=== PATIENT | female | born 1975 ===

== ENCOUNTER 2018-01-17 06:19 | Day surgery (SDC) | payer BC ==
[2018-01-10 11:08] VITALS: BMI 28.0
[2018-01-17 06:44] LABS: BASO % 0.6 % (0.0-2.0); EOS # 0.1 K/uL (0.0-0.7); EOS % 1.5 % (0.0-4.0); HEMOGLOBIN 14.3 g/dL (12.0-16.0); LYMPH # 1.8 K/uL (1.0-4.3); LYMPH % 24.6 % (20.0-40.0); MEAN CELL VOLUME 88.8 fl (81.0-99.0); MEAN CORPUSCULAR HEMOGLOBIN 29.8 pg (27.0-31.0); MEAN CORPUSCULAR HGB CONC 33.6 g/dL (33.0-37.0); MEAN PLATELET VOLUME 9.1 fl (7.2-11.7); MONO # 0.8 K/uL (0.0-0.8); MONO % 10.4 % (0.0-10.0); NEUT # 4.7 K/uL (1.8-7.0); NEUT % 62.9 % (50.0-75.0); RBC 4.8 Mil/uL (3.80-5.20); WHITE BLOOD COUNT 7.4 K/uL (4.8-10.8)
[2018-01-17] MEDS ORDERED: Propofol 10 mg/ml Inj (20 ML) ONE (07:05)
[2018-01-17] MEDS ORDERED: Midazolam 2 MG/2 ML VIAL ONE (07:06)
--- NOTE | 2018-01-17 07:12 | CP.SDSHP ---
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 and requested pelvic and abd cat scan which was neg and now for hysteroscopy and D/ C r/o GTD - Previous Medical/Surgical History Neuro: Other Misc: Other Comments: see HPI; Hx of migraines Previous Surgical History: TOP 1992; umb hernia repair 2009; abdominoplaty 2015 - Allergies Allergies: Allergies No Known Allergies Allergy (Verified 01/17/18 06:38) - Physical Exam Vital Signs: Vital Signs 01/17/18 01/17/18 06:59 07:04 Temperature 98.5 F Pulse Rate 65 65 Respiratory 18 Rate Blood Pressure 112/67 O2 Sat by Pulse 98 Oximetry Mental Status: Alert & Oriented x3 Neuro: WNL Heart: WNL Lungs: WNL GI: WNL - {Optional Preform as Required} Breast: WNL Abdomen: WNL Rectal: WNL Integument: WNL INSIDE [employer]ES [employer]GER: WNL : WNL - Impression Impression: Lingering levels of SBS despite medical tx possible GTD - Date & Time Date: 01/17/18 Time: 07:21 Short Stay Discharge - Short Stay Discharge Admitting Diagnosis/Reason for Visit: 028.9 Disposition: HOME/ ROUTINE Referrals: Lucio Sanchez MD [Primary Care Provider] -
[2018-01-17] MEDS ORDERED: cefOXitin IV 1 gm in Dextrose 1 GM/50 ML BAG IVPB ONE (07:32)
[2018-01-17] MEDS ORDERED: Lactated Ringer's 1,000 ML IV ONE (07:35)
[2018-01-17] MEDS ORDERED: Dexamethasone 4 mg/1 ml ONE (07:48)
[2018-01-17] MEDS ORDERED: Oxycodone/Acetaminophen 5/325 mg Tab PO PRN (08:27)
--- NOTE | 2018-01-17 08:32 | CP.SDSHP ---
Same Day Surgery H & P - Allergies Allergies: Allergies No Known Allergies Allergy (Verified 01/17/18 06:38) - Physical Exam Vital Signs: Vital Signs 01/17/18 01/17/18 06:59 07:04 Temperature 98.5 F Pulse Rate 65 65 Respiratory 18 Rate Blood Pressure 112/67 O2 Sat by Pulse 98 Oximetry Short Stay Discharge - Short Stay Discharge Admitting Diagnosis/Reason for Visit: 028.9 Referrals: Lucio Sanchez MD [Primary Care Provider] - Follow-up: 2 wks Additional Instructions (Diet, Activity): pelvic and bed rest Progress Note/Discharge Note with Instructions: tolerated procedure well no complications Recovered well discussed procedure findings and instructions given
[2018-01-17] MEDS ORDERED: Dexamethasone 4 mg/1 ml IVP PRN (08:37)
[2018-01-17] MEDS ORDERED: HYDROmorphone 0.5 mg/0.5 ml ISec IVP PRN (08:37)
[2018-01-17 09:26] VITALS: RESP 18
[2018-01-17 10:29] VITALS: TEMP 98.2
[2018-01-17 12:02] VITALS: BP 100/51; PULSE 75; O2SAT 97
--- NOTE | 2018-01-18 00:18 | OP ---
PROCEDURE DATE: 01/17/2018 PREOPERATIVE DIAGNOSES: 1. Persistent abnormal high levels of serum beta-subunit, possible gestational trophoblastic disease. 2. Failed medical treatment. PREOPERATIVE DIAGNOSES: 1. Persistent abnormal high levels of serum beta-subunit, possible gestational trophoblastic disease. 2. Failed medical treatment. 3. Pending pathology report. PROCEDURES PERFORMED: Hysteroscopy and dilatation and curettage. SURGEON: Jorden Medeiros MD ANESTHESIA USED: General. ANESTHESIOLOGIST: Jefferson Christie MD ESTIMATED BLOOD LOSS: 75 mL. DRAINS USED: None. REPLACEMENTS USED: None. FINDINGS: 1. Cervix appears slightly irregular, but no gross lesions to visualization, was close and mobile. 2. Uterus appears anteverted, mobile, sounded to 8 cm and appears smooth, but upper limit size to palpation. 3. No adnexal masses to palpation bilaterally. 4. Hysteroscopy revealed no endometrial polyps, no gross lesion in the endometrial cavity, minor sloughing of the endometrium but no real lesion seen. 5. Fractional dilatation and curettage performed without any complications. DESCRIPTION OF PROCEDURE: The patient was taken to the operating room and placed on the operating table in a supine position. Following induction of general anesthesia, the patient was then placed in a dorsal lithotomy position. Perineal and genital areas were draped and prepped in the usual sterile manner. At this time, we then proceeded to place a sterile catheter in the bladder. Clear fluid was then evacuated from the bladder. The patient was then examined under anesthesia with some of the above findings. Heavy weighted speculum was then placed in the posterior wall of the vagina exposing the cervix. The anterior lip of the cervix was then grasped using a single-tooth tenaculum and retracted superiorly. At this time, the endocervical canal was then curetted using Kevorkian-Younge curette. Minimal amount of tissue was obtained and sent to Pathology. Endocervical canal was then dilated using Hanks dilators in an increasing size manner. Following this, the hysteroscope was then introduced after sounding the uterus. The sound was about 8 cm. Hysteroscope was then introduced into the endocervical canal and advanced under direct visualization. Upon entering the endometrial cavity, no gross lesions or polyps noted to be present. No active bleeding. A slightly erythremic minor areas of sloughing endometrium, but no gross lesions noted. Both ostia visualized, appear grossly within normal limits to inspection. Hysteroscope was then removed under direct visualization, and the endometrial cavity was then curetted using sharp curettage. Minimal amount of tissue was then obtained and sent to Pathology for proper pathological evaluation. At this time, the single-tooth tenaculum was then removed. The uterus massaged and contracted well. No bleeding noted from the tenaculum site. The patient tolerated the procedure well. There were no complications. She was transferred to the recovery room in satisfactory condition. Jorden Medeiros MD
== END 2018-01-17 12:45 | disposition home or self-care (01) ==
LOC: H.OPSURG 06:19
PROVIDERS: ATTEND Specialist
DX: O28.9 Unspecified abnormal findings on antenatal screening of mother (principal)
CPT/HCPCS: 36415; 58558; 85025; 86850; 86900; 88305; J0694; J1100; J1885; J2001; J2250; J2405; J2704; J3010; J7120